=== PATIENT | male | born 1960 | race Caucasian/White ===

== ENCOUNTER 2024-09-14 19:51 | Emergency (ER) | payer BC, MEDICARE, SELFPAY ==
[2024-09-14 19:52] VITALS: BP 167/97; PULSE 85; RESP 17; TEMP 36.9; O2SAT 98
[2024-09-14 19:58] VITALS: BMI 39.4
[2024-09-14 20:38] VITALS: BP 153/82; PULSE 89; RESP 20; O2SAT 95
[2024-09-14 21:04] VITALS: BP 165/79; PULSE 86; RESP 16; TEMP 36.9; O2SAT 96
[2024-09-14 21:44] LABS: Absolute Lymphocyte Count 1.94 X10^3/uL (0.83-4.51); Absolute Neutrophil Count 10.3 X10^3/uL (2.0-7.7); Basophil# 0.07 X10^3/uL; Basophil% 0.5 % (0-1); Eosinophil# 0.15 X10^3/uL; Eosinophils% 1.1 % (0-5); Hematocrit 41.4 % (40-54); Hemoglobin 13.7 g/dL (13.0-16.5); Lymphocyte # 1.94 X10^3/ul (0.83-4.51); Lymphocyte % 14.1 % (19-41); Mean Corp Hgb Conc 33.1 g/dL (32-36); Mean Corpuscular Hgb 29.3 pg (27.0-32.0); Mean Corpuscular Volume 88.5 fL (80-94); Mean Platelet Vol. 11.3 fl (6.2-12.0); Monocyte# 1.23 X10^3/uL; NRBC Flagged by Analyzer 0 % (0-5); Neutrophil # 10.28 X10^3/uL (2.7-7.7); Neutrophil % 74.8 % (47-70); Platelet Count 277 K/mm3 (150-450); RBC Distribution Width CV 13.2 % (11.6-14.6); RBC Distribution Width SD 42.7 fl (35.1-43.9); Red Blood Count 4.68 M/mm3 (4.6-6.2); White Blood Count 13.7 K/mm3 (4.4-11.0)
--- NOTE | 2024-09-14 22:00 | EX.ED.DYSGE1 ---
HPI <KRISTEN Price - Last Filed: 09/14/24 22:15> History of Present Illness Chief Complaint: Dizziness Narrative Narrative: Patient presenting today due to an episode of lightheadedness that occurred this evening. He was sitting in bed and became hot, diaphoretic, and felt lightheaded. His symptoms resulted within minutes. He denies having any chest pain or shortness of breath during this episode. He denies vertiginous dizziness. He just had a debridement of his meniscus and a Forrester's cyst removed last Saturday by Dr. Fortune in [place]. He reports swelling to his left ankle that has been worse today. He reports a history of gout but states that this does not seem consistent with previous gout flares. He denies any history of blood clots. He denies any fevers, chills, nausea, or vomiting. Additionally, he reports a nonproductive cough over the past 3 days. PFS <KRISTEN Price - Last Filed: 09/14/24 22:15> [facility] Medical History Tear of meniscus of knee Gout Olecranon bursitis of right elbow Gout Home Medications ?Medication ?Instructions ?Recorded ?Last Taken ?Type indomethacin 50 mg capsule 50 mg PO TID #15 caps 06/23/21 Unknown Rx colchicine 0.6 mg tablet See Rx Instructions PO DAILY #7 07/18/23 Unknown Rx tabs lisinopril 10 mg tablet 10 mg PO DAILY 07/18/23 Unknown History losartan 25 mg tablet 25 mg PO DAILY 07/18/23 Unknown History metformin 500 mg tablet 500 mg PO DAILY 07/18/23 Unknown History rosuvastatin 20 mg tablet 20 mg PO DAILY 07/18/23 Unknown History Allergy/AdvReac Type Severity Reaction Status Date / Time No Known Allergies Allergy Verified 09/14/24 19:52 Family History Mother Cancer Father Cancer Surgical History Hx of knee surgery History of cholecystectomy Social History Smoking Status: Never smoker alcohol intake: current alcohol intake frequency: a few times a week Alcohol type: beer and wine ROS <KRISTEN Price - Last Filed: 09/14/24 22:15> ROS ED Constitutional Constitutional ED: Denies chills or fever(s) Cardiovascular Cardiovascular: Denies chest pain Respiratory/Chest Respiratory/Chest: Reports cough; Denies dyspnea Gastrointestinal Gastrointestinal: Denies abdominal pain, nausea or vomiting Musculoskeletal Musculoskeletal: Denies arthralgias or myalgias Integumentary Denies rash Neurologic Neurologic: Denies paresthesias or weakness EXAM <KRISTEN Price - Last Filed: 09/14/24 22:15> Physical Exam Const Vital Signs: 09/14/24 19:52 09/14/24 20:29 09/14/24 20:38 Temperature 98.4 F Temperature Source Oral Pulse Rate 85 89 Respiratory Rate 17 20 H Respiratory Effort Normal Respiratory Pattern Normal Blood Pressure 167/97 H 153/82 H Blood Pressure Mean 120 105 Pulse Ox 98 95 Oxygen Delivery Method Room Air Room Air 09/14/24 21:04 Temperature 98.4 F Temperature Source Oral Pulse Rate 86 Respiratory Rate 16 Respiratory Effort Respiratory Pattern Blood Pressure 165/79 H Blood Pressure Mean 107 Pulse Ox 96 Oxygen Delivery Method Room Air Positive well nourished, well developed and no apparent distress General Appearance ED: well developed HEENT Reports normocephalic and head/scalp atraumatic Mouth ED: Yes moist mucous membranes normal Eyes PERRL and EOMs intact bilaterally Neck full ROM and supple Chest Wall inspection of chest normal Resp normal respiratory effort and clear to auscultation bilaterally Cardio regular rate and regular rhythm GI soft to palpation, non-tender, non-distended and no masses Back/Spine normal ROM and normal to inspection Extremity full ROM Extremity Narrative: Laparoscopic incisions to the knee without any surrounding erythema, sutures are intact, there are mago intact to the posterior aspect of the knee without any dehiscence. No surrounding erythema, warmth, or purulent discharge to surgical incisions. Minimal swelling to the left lower extremity in comparison to the right, worse at the left ankle, negative Homans' sign on the left, left DP pulse 2+, good cap refill, sensation intact. Neuro oriented x3, CN's II-XII intact bilaterally, moves all extremities, no focal motor deficits and no sensory deficits noted Sensorium / Orientation: awake and alert Psych mental status grossly normal and thought process normal Skin no rashes or lesions noted and no wounds <Dr. Quentin Burrows DO - Last Filed: 09/14/24 23:26> Physical Exam Const Vital Signs: 09/14/24 19:52 09/14/24 20:29 09/14/24 20:38 Temperature 98.4 F Temperature Source Oral Pulse Rate 85 89 Respiratory Rate 17 20 H Respiratory Effort Normal Respiratory Pattern Normal Blood Pressure 167/97 H 153/82 H Blood Pressure Mean 120 105 Pulse Ox 98 95 Oxygen Delivery Method Room Air Room Air 09/14/24 21:04 Temperature 98.4 F Temperature Source Oral Pulse Rate 86 Respiratory Rate 16 Respiratory Effort Respiratory Pattern Blood Pressure 165/79 H Blood Pressure Mean 107 Pulse Ox 96 Oxygen Delivery Method Room Air MDM <KRISTEN Price - Last Filed: 09/14/24 22:15> MDM MDM Narrative Medical decision making narrative: Patient presenting due to an episode of lightheadedness that occurred this evening while he was sitting in bed. He became diaphoretic, hot, sweaty, and lightheaded. This resolved within minutes. He had no chest pain or shortness of breath during this. He just had surgery performed to his left knee on Saturday. He has had worsening swelling to his left ankle today. He has a negative Homans' sign on the left. No palpable cord. He has also had a cough over the past 3 days. Labs obtained. He has a mild leukocytosis at 13.7. BMP and troponin are pending. Chest x-ray obtained to assess for cardiopulmonary abnormality/infiltrate given his cough. The remainder patient's workup is pending, he was noted off to the attending ED physician. Lab Data Attestation: I reviewed the patient's lab results. Labs: Laboratory Results - last 24 hr 09/14/24 09/14/24 20:30 22:26 WBC 13.7 H RBC 4.68 Hgb 13.7 Hct 41.4 MCV 88.5 MCH 29.3 MCHC 33.1 RDW Std Deviation 42.7 RDW Coeff of Carlos 13.2 Plt Count 277 MPV 11.3 Immature Gran % (Auto) 0.500 Neut % (Auto) 74.8 H Lymph % (Auto) 14.1 L [place] % (Auto) 9.0 Eos % (Auto) 1.1 Baso % (Auto) 0.5 Absolute Neuts (auto) 10.3 H Absolute Lymphs (auto) 1.94 Nucleated RBC % 0 Sodium 137 Potassium 3.6 Chloride 101 Carbon Dioxide 30.0 Anion Gap 6 BUN 19 H Creatinine 1.15 Estim Creat Clear Calc 84.82 Est GFR (MDRD) Af Amer 82 Est GFR (MDRD) Non-Af 68 BUN/Creatinine Ratio 16.5 Glucose 142 H Calcium 9.8 Troponin I High Sens 30 25 Radiography Diagnostic Testing: Clinical Impression(s) from Imaging Studies Chest X-Ray 09/14/24 22:10 IMPRESSION: No acute airspace abnormality. Reading Location: [facility] EKG Initial EKG: Comments: 83 bpm, normal sinus rhythm, no ST elevation, interpreted by attending ED physician <Dr. Quentin Burrows, DO - Last Filed: 09/14/24 23:26> [facility] MDM Narrative Medical decision making narrative: Patient presenting due to an episode of lightheadedness that occurred this evening while he was sitting in bed. He became diaphoretic, hot, sweaty, and lightheaded. This resolved within minutes. He had no chest pain or shortness of breath during this. He just had surgery performed to his left knee on Saturday. He has had worsening swelling to his left ankle today. He has a negative Homans' sign on the left. No palpable cord. He has also had a cough over the past 3 days. Labs obtained. He has a mild leukocytosis at 13.7. BMP and troponin are pending. Chest x-ray obtained to assess for cardiopulmonary abnormality/infiltrate given his cough. The remainder patient's workup is pending, he was noted off to the attending ED physician. Supervisory Physician Note Patient was seen and examined with the Advanced Practice Provider. Nursing notes and vital signs have been reviewed. Pertinent old records have been reviewed. I agree with the essential elements of the GISELLA's history, physical exam, assessment, and plan. The differential diagnosis and management options were discussed with the GISELLA. I participated in determining and agree with the management, procedures, final impression and disposition as documented. See changes noted by me. Please see addendum or separate note for any additional details. 64-year-old male with past medical history of gout, DM, HTN, HLD presents for evaluation of an episode of lightheadedness. Light headedness developed while laying in bed. States became warm and diaphoretic. All symptoms have resolved. He denies any fever, chills, URI symptoms, chest pain, shortness of breath, abdominal pain, nausea, vomiting, dysuria. Patient states that over the past couple days he has had some swelling in his left ankle. This is located on the side of his left knee surgery. Denies any significant pain in the ankle. States he has had a cough for the past several days. Denies any history of blood clot. Gen: A&O x3, NAD Head: Normocephalic, atraumatic Eyes: No sclera icterus, conjunctiva clear, PERRL, EOMI ENT: Moist mucous membranes Neck: Trachea midline, No JVD CV: RRR, no murmurs, no peripheral edema Resp: Lungs CTA BL, no w/r/c GI: Abd soft, non-distended, non-tender, no r/r/g Musc: Moves all extremities, no deformity, left knee incisions healing well without signs of infection, mild swelling in the left knee as well as left ankle left ankle is nontender, warm, erythematous. No calf swelling or calf tenderness. Negative Homans' sign. DP/PT pulses plus 2 out of 4 bilaterally. Sensation intact.. Normal capillary refill Skin: Warm, dry Neuro: Alert, oriented, grossly intact, sensation intact Psych: Cooperative, appropriate mood and affect 64-year-old male with past medical history of gout, DM, HTN, HLD presents for evaluation of an episode of lightheadedness. Denies any chest pain or shortness of breath during his episode of lightheadedness. Currently asymptomatic. Vitals are stable other than some mild hypertension. No hypoxia. No tachycardia. Differential diagnosis includes but is not limited to vasovagal episode, electrolyte abnormality, pneumonia, atelectasis, pneumonia, suspect less likely ACS. Patient's left ankle swelling appears more consistent with dependent swelling from his previous surgery however cannot officially rule out DVT. I do not have ultrasound available in our emergency department at this time therefore he will given an outpatient order for ultrasound. Patient is not endorsing any chest pain, shortness of breath. He is not tachycardic or hypoxia. EKG was personally reviewed and interpreted by me. EKG shows normal sinus rhythm without any acute ischemic changes. Heart rate 83. Chest x-ray personally interpreted and reviewed by me. No pneumonia, effusion, pneumothorax, cardiomegaly. CBC with mild leukocytosis of 13.7. This is likely secondary to his recent surgery. No anemia. BMP relatively unremarkable except for some hyperglycemia. Patient is diabetic. Troponin unremarkable x 2. COVID, flu, RSV negative. On reevaluation, patient is asymptomatic. Again vitals are stable. At this point in time, no clear etiology for patient's symptoms. Patient is stable to discharge home. Follow-up with PCP. Return precautions explained. Patient was given an order for an outpatient ultrasound. Patient confirmed understanding of the plan. Impression: 1. Episode of lightheadedness, resolved 2. Recent history of left knee surgery 3. Left ankle Lab Data Labs: Laboratory Results - last 24 hr 09/14/24 09/14/24 20:30 22:26 WBC 13.7 H RBC 4.68 Hgb 13.7 Hct 41.4 MCV 88.5 MCH 29.3 MCHC 33.1 RDW Std Deviation 42.7 RDW Coeff of Carlos 13.2 Plt Count 277 MPV 11.3 Immature Gran % (Auto) 0.500 Neut % (Auto) 74.8 H Lymph % (Auto) 14.1 L [place] % (Auto) 9.0 Eos % (Auto) 1.1 Baso % (Auto) 0.5 Absolute Neuts (auto) 10.3 H Absolute Lymphs (auto) 1.94 Nucleated RBC % 0 Sodium 137 Potassium 3.6 Chloride 101 Carbon Dioxide 30.0 Anion Gap 6 BUN 19 H Creatinine 1.15 Estim Creat Clear Calc 84.82 Est GFR (MDRD) Af Amer 82 Est GFR (MDRD) Non-Af 68 BUN/Creatinine Ratio 16.5 Glucose 142 H Calcium 9.8 Troponin I High Sens 30 25 Radiography Diagnostic Testing: Clinical Impression(s) from Imaging Studies Chest X-Ray 09/14/24 22:10 IMPRESSION: No acute airspace abnormality. Reading Location: [facility] Discharge Plan Triage Chief Complaint: Dizziness Other Complaint: General Illness ED Midlevel Provider: Jewels Sarabia ED Provider: Quentin Burrows Dx/Rx/DC Orders Prescriptions: No Action indomethacin 50 mg capsule 50 mg PO TID Qty: 15 0RF Rx Instructions: administer with food or milk lisinopril 10 mg tablet 10 mg PO DAILY losartan 25 mg tablet 25 mg PO DAILY metformin 500 mg tablet 500 mg PO DAILY rosuvastatin 20 mg tablet 20 mg PO DAILY colchicine 0.6 mg tablet See Rx Instructions PO DAILY Qty: 7 0RF Rx Instructions: 2 tablets as single dose then 1 tablet 1 hour after then 1 tablet daily Other Ambulatory Orders: Venous Duplex US, Unilateral (Stat) Facility: [facility] [place] - Location: [facility] Ordered By: Jewels Sarabia Primary Care Provider: Yvonne Baldwin Referrals: Yvonne Baldwin, PHOTOGRAPHIC PRINTER-C [Primary Care Provider] - Print Language: Tajik
--- NOTE | 2024-09-14 22:10 | RAD_ITS ---
PROCEDURE: Chest radiographs REASON FOR EXAM: Cough TECHNIQUE: Two views of the chest COMPARISON: None FINDINGS: Cardiomediastinal silhouette is within normal limits. Lungs are clear. No sizable pneumothorax. RAD/Chest PA and Lateral IMPRESSION: No acute airspace abnormality. Reading Location: [facility]
--- NOTE | 2024-09-14 22:23 | ED.RN ---
no old ekg
[2024-09-14 22:30] LABS: Anion Gap 6 (5-15); BUN 19 mg/dL (7-18); BUN/Creat Ratio 16.5 RATIO (10-20); Calcium,Total 9.8 mg/dL (8.5-10.1); Chloride 101 mmol/L (98-107); Creatinine, Serum 1.15 mg/dL (0.70-1.30); EST Glomerular Filtration Rate 68 mL/min (>60); Est Glom Filt Rate - Afr Amer 82 mL/min (>60); Estimated Creatinine Clearance 84.82 ml/min; Glucose 142 mg/dL (74-106); Potassium 3.6 mmol/L (3.5-5.1); Sodium Level 137 mmol/L (136-145); Troponin-I HS 30 pg/mL (3.0-78.0)
[2024-09-14 22:51] LABS: Troponin-I HS 25 pg/mL (3.0-78.0)
[2024-09-14 23:00] VITALS: PULSE 85; RESP 18; O2SAT 95
[2024-09-14 23:40] VITALS: BP 165/79; PULSE 85; RESP 18; TEMP 36.9; O2SAT 95
== END 2024-09-14 23:49 | disposition home or self-care (01) ==
PROVIDERS: Physician Assistant; Emergency Provider Surgery; PCP Nurse Practitioner Family; Visit Provider Surgery
DX: R42 Dizziness and giddiness (principal); E11.9 Type 2 diabetes mellitus without complications; R05.1 Acute cough; I10 Essential (primary) hypertension; Z79.84 Long term (current) use of oral hypoglycemic drugs; Z79.899 Other long term (current) drug therapy
CPT/HCPCS: 71046; 80048; 84484; 85025; 87631; 93005; 99285; A4216

== ENCOUNTER → 2024-09-15 | Outpatient (CLI) | payer BC, MEDICARE, SELFPAY ==
--- NOTE | 2024-09-15 11:05 | VDLE_ITS ---
Reason For Study Reason For Study: LLE Pain RIGHT LEFT CFV is compressible, spontaneous, phasic, competent GSV is normal. and demonstrates normal augmentation. CFV is compressible, spontaneous, phasic, competent, Procedure and demonstrates normal augmentation. This is a venous duplex using B-mode, color flow and FV is compressible, spontaneous, phasic, competent spectral Doppler. and demonstrates normal augmentation. Exam performed in department. POP V is compressible, spontaneous, phasic, competent The exam was diagnostic. and demonstrates normal augmentation. A preliminary report was called and/or faxed to [facility] T/P Trunk is compressible. ED. PTV is compressible. LT PerV is compressible. VL/Venous Duplex US, Unilateral Interpretation Summary Deep veins of the left lower extremity are patent and compressible segmentally. There is no evidence of left lower extremity deep vein thrombosis. Valvular competence appears intact within the p roximal deep venous system on the left . The left great saphenous vein appears patent and compressible segmentally. The right common femoral vein is patent and compressible . Ordering Physician: Jewels Sarabia Referring Physician: Yvonne De Los Santos Performed By: Elver Roland RVT
== END | disposition home or self-care (01) ==
PROVIDERS: PCP Nurse Practitioner Family; Referring Provider Physician Assistant; Visit Provider Physician Assistant
DX: M79.605 Pain in left leg (principal)
CPT/HCPCS: 93971

== ENCOUNTER → 2024-11-16 | Outpatient (CLI) | payer BC, MEDICARE, SELFPAY ==
--- NOTE | 2024-11-16 10:56 | RAD_ITS ---
PROCEDURE: CHEST PA AND LATERAL 11/16/2024 REASON FOR EXAM: COUGH TECHNIQUE: Frontal and lateral views of the chest. COMPARISON: Prior study dated September 14, 2024. FINDINGS: Hardware: None Heart: The heart size is normal. Mediastinum: The mediastinal contour is unremarkable. Lungs: Hyperinflation. The lungs are clear. Bones: The bones are unremarkable. RAD/Chest PA and Lateral IMPRESSION: Hyperinflation. The lungs are clear. Reading Location: [place] [id number]
== END | disposition home or self-care (01) ==
LOC: MTRAD 10:56
PROVIDERS: PCP Nurse Practitioner Family; Referring Provider Physician Assistant; Visit Provider Physician Assistant
DX: R05.9 Cough, unspecified (principal)
CPT/HCPCS: 71046

== ENCOUNTER → 2025-02-08 | Outpatient (CLI) | payer BC, MEDICARE, SELFPAY ==
--- NOTE | 2025-02-08 09:15 | RAD_ITS ---
PROCEDURE: ELBOW MIN 3 VIEWS 02/08/2025 REASON FOR EXAM: PAIN TECHNIQUE: ELBOW MIN 3 VIEWS COMPARISON: None FINDINGS: There is no fracture or dislocation. Soft tissue swelling is noted over the olecranon, which can indicate bursitis. There is no visible effusion. Mineralization is normal. There is no visible atherosclerosis. RAD/Elbow min 3 Views IMPRESSION: Soft tissue swelling is noted over the olecranon, which can indicate bursitis. Reading Location: [facility]
== END | disposition home or self-care (01) ==
LOC: MTRAD 09:15
PROVIDERS: PCP Nurse Practitioner Family; Referring Provider Physician Assistant; Visit Provider Physician Assistant
DX: M25.522 Pain in left elbow (principal)
CPT/HCPCS: 73080